=== PATIENT | male | born 1970 | race Caucasian/White ===

== ENCOUNTER 2023-03-02 07:31 | Day surgery (SDC) | payer BC, SELFPAY ==
[2023-03-02] VITALS (8 sets, daily range): BP systolic 125–154; BP diastolic 73–94; PULSE 89–104; RESP 17–18; TEMP 36.2–36.8; O2SAT 93–996; BMI 33.8
--- NOTE | 2023-03-02 08:00 | RAD_ITS ---
STUDY: X-RAY - LUMBAR SPINE REASON FOR EXAM: Male, 52 years old. INSERTION, SPINAL CORD STIMULATOR TECHNIQUE: 7 intraoperative view(s) of the lumbar spine were obtained. 149.5 seconds of fluoroscopy. Dose of 175.36 and January COMPARISON: None FINDINGS: 7 limited intraoperative studies performed during spinal cord stimulator insertion. No intraoperative complications noted. RAD/Lumbar Spine 2 or 3 Views IMPRESSION: No intraoperative complications noted during spinal cord stimulator placement Electronically Signed: Doug Edmonds MD at 13:53 EDT ,
[2023-03-02] MEDS: Lactated Ringers 1,000 ML 15 ML IV ×2 (08:19→11:47)
[2023-03-02] MEDS: Cefazolin 2 GM in 0.9% Normal Saline 100 ML IV (09:18)
[2023-03-02] MEDS: Lidocaine 1%/Epi 1:100 (30ml) 30 ML VIAL (10:31)
[2023-03-02] MEDS: Bupivacaine 0.25% 30 ML Vial (10:32)
== END 2023-03-02 13:13 | disposition home or self-care (01) ==
LOC: SDC 07:45 → AC 08:05
PROVIDERS: PCP Family Medicine; Referring Provider Anesthesiology Pain Medicine; Visit Provider Anesthesiology Pain Medicine
PROC: (CPT 63685; principal; 2023-03-02 08:45)
DX: M54.50 Low back pain, unspecified (principal); M96.1 Postlaminectomy syndrome, not elsewhere classified; M54.16 Radiculopathy, lumbar region; Z96.82 Presence of neurostimulator
CPT/HCPCS: 63650; 63685; 00300; 72100; 76000; C1778; J7120; J2405